=== PATIENT | female | born 1945 | race Caucasian/White ===

== ENCOUNTER 2019-05-11 13:31 | Outpatient (CLI) | payer MEDICARE, OTHER, SELFPAY ==
[2019-05-11] VITALS (9 sets, daily range): BP systolic 101–152; BP diastolic 55–82; PULSE 54–72; RESP 15–16; O2SAT 93–98
--- NOTE | 2019-05-11 13:33 | DI.RAD.S_ITS ---
PROCEDURE: PAIN L/S TRANSFORAMINAL INJECT INDICATIONS: SPINAL STENOSIS FINDINGS: Fluoroscopic spot filming was performed to verify placement of spinal needles at the L5-S1 needle placement. level(s), as labeled on the films. Appropriate location(s) of the needle tip(s) was confirmed by injection of iodinated contrast. There is trace anterolisthesis of L4 on L5. IMPRESSION: Needle placement as above. Dictated by: Anyi Dior M.D. on 05/11/2019 at 17:06 Approved by: Anyi Dior M.D. on 05/11/2019 at 17:07
[2019-05-11] MEDS: MIDAZOLAM 5 MG/5 ML VIAL IV (15:08)
[2019-05-11] MEDS: fentaNYL 100 MCG/2 ML INJ 50 MCG IV (15:08)
[2019-05-11] MEDS: BUPIVACAINE 0.25% (PF) VIAL 2 ML INJ (15:10)
[2019-05-11] MEDS: BETAMETHASONE 30 MG/5 ML MDV 6 MG INJ (15:10)
[2019-05-11] MEDS: IOPAMIDOL 15 ML VIAL 3 ML INJ (15:11)
[2019-05-11] MEDS: DEXAMETHASONE 10 MG/ML VIAL 20 MG INJ (15:11)
--- NOTE | 2019-05-11 15:26 | PC.NURSE ---
Post procedure note: Patient medicated per providers orders. VSS throughout on 2L/ATTORNEY. Tolerated procedure well. Able to sit up and transfer to w/c with standby assist. No complaints of pain 0/10. Tingling to right leg no numbness. Handoff report given to Jaswinder Tejada RN. Able to transfer to recliner from wheelchair independently.
--- NOTE | 2019-05-11 15:26 | PM.PROC.1 ---
Procedures Date/Time Date of procedure: 05/11/19 Time of procedure: 15:27 General Procedure description: PREOP DIAGNOSIS 1. FORMAINAL STENOSIS WITH LE SYMPTOMS, POST OP DIAGNOSIS 1. FORMAINAL STENOSIS WITH LE SYMPTOMS, PROCEDURES 1.FLUOROSCOPICALLY GUIDED CONTRAST CONTROLLED TRANSFORAMINAL EPIDURAL STEROID INJECTION - RIGHT L5/S1 TFESI PHYSICIAN: Grayson Pratt DO INDICATIONS: Pooja is referred by NELLIE Sanon for treatment of Foraminal Stenosis with right LE Symptoms FINDINGS Foraminal Nerve Root Compression secondary to disc disease and facet hypertrophy DESCRIPTION OF PROCEDURE Following review of allergy and review of potential side effects and complications, including, but not necessarily limited to, infection, allergic reaction, local tissue breakdown, stroke, temporary or permanent nerve injury, paralysis, and possible , the patient indicated that the patient understood and agreed to proceed. An informed consent document was signed by the patient, witnessed by a nurse, and placed in the patient's chart. Additionally, other treatment options including medications, modalities, and physical therapy were reviewed with the patient. After review of previous anaesthesic history and IV conscious sedation the patient was deemed safe to proceed with todays procedure with IV conscious sedation as ASA class II designation. Safety time-out was performed to confirm patient ID, procedure to be performed and site of procedure. IV sedation was accomplished with a combination of 2mg of Versed and 50mcg of Fentanyl was administered by the RN after DO order, titrated to patient comfort during the course of the procedure while the patient remained responsive to all verbal commands In the prone position following sterile prep and drape of the lumbar region, the right L5/S1 posterior neuroforamen was identified fluoroscopically. The skin was anesthetized via a 25-gauge 1.5-inch needle with 1% lidocaine solution. At this point, a 25-gauge 3.5-inch spinal needle was atraumatically introduced and advanced under fluoroscopic guidance through the posterior right L5/S1 neuroforamen to approximately the anterior aspect of the canal. Depth was confirmed on lateral view. Following negative aspiration, injection of approximately 1.5 cc of Isovue 200 under live fluoroscopy in the AP view confirmed excellent flow along the nerve root, into the epidural space without vascular or intrathecal uptake observed Radiological data, including multiple fluoroscopic views of the lumbosacral spine, reveal a spinal needle at the right L5/S1 posterior neuroforamen. Subsequent views show flow of contrast material flowing superiorly and inferiorly along the nerve root confirming epidural flow. Subsequently, a test dose of 1.5 cc of 1% lidocaine solution was administered and patient was observed for two minutes for signs or symptoms of complications, including abdominal pain, shortness of breath, bilateral upper or lower extremity weakness, nausea and vomiting, prior to steroid injection. At this point, a total of 3cc or 20mg of dexamethasone and 6mg betamethasone was injected without incident. The procedure tolerated the procedure well without signs or symptoms of complications prior to transfer to the recovery area continued monitoring without incident. The patient was then transferred to the recovery area where they were observed for an appropriate time after the injection. The patient reported a VAS score of 7 prior to the procedure and a post-procedure VAS of 0. Total Fluoroscopy Time: 20.9 seconds Total Conscious Sedation Time: 24min POST OP INSTRUCTIONS The patient was provided a Pain Log to continue to record their response to the target-specific procedure prior to follow-up visit with their referring physician. Additionally, specific post-injection care instructions and a contact number to our office were provided if concerns arise regarding possible complications associated with the procedure are suspected. Grayson Pratt, Complications: none
== END 2019-05-11 16:11 | disposition home or self-care (01) ==
LOC: RAD 13:33
PROVIDERS: PCP Physician Assistant; Visit Provider Physical Medicine & Rehabilitation
DX: M48.07 Spinal stenosis, lumbosacral region (principal); M51.17 Intervertebral disc disorders with radiculopathy, lumbosacral region
CPT/HCPCS: 64483; 99152; J0702; J2250; J3010

== ENCOUNTER → 2019-12-04 09:01 | Outpatient (CLI) | payer MEDICARE, OTHER, SELFPAY ==
[2019-12-06 11:12] LABS: COVID19 Sendout Not Detected (Not Detect)
== END ==
PROVIDERS: PCP Physician Assistant; Visit Provider Physician Assistant
DX: Z01.812 Encounter for preprocedural laboratory examination (principal)
CPT/HCPCS: 87635

== ENCOUNTER 2019-12-07 07:56 | Outpatient (CLI) | payer MEDICARE, OTHER, SELFPAY ==
[2019-12-07] VITALS (10 sets, daily range): BP systolic 106–155; BP diastolic 65–86; PULSE 51–68; RESP 14–17; TEMP 36.2; O2SAT 94–99
--- NOTE | 2019-12-07 07:57 | DI.RAD.S_ITS ---
PROCEDURE: PAIN L/S FACET INJ/BLK 1ST ROBBIN COMPARISON: None. INDICATIONS: SPONDYLOSIS FINDINGS: 6 intraoperative fluoroscopy images were obtained demonstrating needle placement at L4-L5 and L5-S1 facet joints. IMPRESSION: Fluoroscopy guidance for needle placement. Dictated by: Arvind Vera M.D. on 12/07/2019 at 10:11 Approved by: Arvind Vera M.D. on 12/07/2019 at 10:12
--- NOTE | 2019-12-07 08:54 | DI.RAD.S_ITS ---
PROCEDURE: XR CERVICAL SPINE 4V OR 5V INDICATIONS: progressive neck pain TECHNIQUE: 5 views of the cervical spine acquired. COMPARISON: None. FINDINGS: Bones: There is grade 1 retrolisthesis of C5 on C6. No fractures or dislocations to the C7 level. There is severe degenerative disc disease at C5-C6. Bilateral facet arthropathy is present severe at C4-C5 and C5-C6 on the right. Oblique images demonstrate foraminal stenosis at C5-C6, [id number] on the left and mild on the right. Soft tissues: No prevertebral soft tissue swelling. Multiple surgical clips in the lower neck, probably related to thyroidectomy. Recommend clinical correlation. IMPRESSION: 1. Severe degenerative disc disease and facet disease in cervical spine, most pronounced at C5-C6. 2. Bilateral foraminal stenosis at C5-C6, [id number] on the left and mild on the right. 3. Grade 1 retrolisthesis of C5 on C6. Dictated by: Arvind Vera M.D. on 12/07/2019 at 11:23 Approved by: Arvind Vera M.D. on 12/07/2019 at 11:29
[2019-12-07] MEDS: MIDAZOLAM 5 MG/5 ML VIAL IV (09:23)
[2019-12-07] MEDS: fentaNYL 100 MCG/2 ML INJ 50 MCG IV (09:23)
[2019-12-07] MEDS: BETAMETHASONE 30 MG/5 ML MDV 12 MG INJ (09:27)
[2019-12-07] MEDS: LIDOCAINE 1% 20 ML 10 ML INJ (09:27)
[2019-12-07] MEDS: IOPAMIDOL 15 ML VIAL 3 ML INJ (09:27)
--- NOTE | 2019-12-07 09:41 | P.PCN_ITS ---
Date/Time/Diagnoses Date of procedure: 12/07/19 Time of procedure: 09:41 Pre-procedure diagnosis: 1. FACET ARTHROPATHY 2. AXIAL LBP 3. MULTILEVEL DDD Post-procedure diagnosis: same Procedure Notes Procedure: 1. FLUOROSCOPICALLY GUIDED CONTRAST CONTROLLED FACET JOINT INJECTIONS BILATERAL L4/5, L5/S1 Indications: Pooja is referred by NELLIE Sanon for treatment of Axial LBP Physician: Grayson Pratt Total Fluoroscopy time (seconds): 11 Total sedation minutes: 24 Complications: none Procedure in detail & Post-procedure care: FINDINGS Multilevel Facet Arthropathy with Clinically significant axial LBP DESCRIPTION OF PROCEDURE Fluoroscopically guided, contrast-controlled bilateral L4/5, L5/S1 facet joint injections. Following review of allergy and review of potential side effects and complications, including, but not necessarily limited to, infection, allergic reaction, local tissue breakdown, stroke, temporary or permanent nerve injury, paralysis, and possible , the patient indicated that the patient understood and agreed to proceed. An informed consent document was signed by the patient, witnessed by a nurse, and placed in the patient's chart. Additionally, other treatment options including medications, modalities, and physical therapy were reviewed with the patient. After review of previous anaesthesic history and IV conscious sedation the patient was deemed safe to proceed with today?s procedure with IV conscious sedation as ASA class II designation. Safety time-out was performed to confirm patient ID, procedure to be performed and site of procedure. IV sedation was accomplished with a combination of 2mg of Versed and 50mcg of Fentanyl was administered by the RN after DO order, titrated to patient comfort during the course of the procedure while the patient remained responsive to all verbal commands In the prone position, following sterile prep and drape of the lumbar region, the posterior aspect of the L4/5, L5/S1 facet joints were identified fluoroscopically. The skin was anesthetized via a 25-gauge 1.5-inch needle with 1% lidocaine solution into the corresponding facet joints. At this point, a 22- gauge 3.5-inch spinal needle was atraumatically introduced and advanced under fluoroscopic guidance into the corresponding facet joints. Following negative aspiration, injections of approximately 0.2cc of Isovue 200 confirmed int erarticular placement without vascular uptake. The identical procedure was then performed at the L4/5, L5/S1 facet joints on the left. Radiological data, including multiple fluoroscopic views of the lumbosacral spine, reveal a spinal needle at the L4/5, L5/S1 facet joints bilaterally. Subsequent views show flow of contrast material both superiorly and inferiorly within the joint space without vascular or intrathecal uptake. At this point, a total of 0.5cc including a mixture of 0.25cc Marcaine and 0.25cc betamethasone was injected without complication into each of the corresponding facet joints. The patient tolerated the procedure well without signs or symptoms of complications prior to transfer to the recovery area continued monitoring without incident. The patient was then transferred to the recovery area where they were observed for an appropriate period of time after the injection. The patient reported a VAS score of 7 prior to the procedure and a post- procedure VAS of 0. POST OP INSTRUCTIONS The patient was provided a Pain Log to continue to record their response to the target-specific procedure prior to follow-up visit with their referring physician. Additionally, specific post-injection care instructions and a contact number to our office were provided if concerns arise regarding possible complications associated with the procedure are suspected.
--- NOTE | 2019-12-07 15:18 | PC.NURSE ---
Arrived injection, VSS, green pain log reviewed with post injection instructions.
--- NOTE | 2019-12-07 15:42 | PC.NURSE ---
Pt tolerated procedure well. Vitals stable upon transfer to post procedure room with report given to MATT Jose. IV Fentanyl and Versed given by Lauren Hamilton RN. All other meds administered by Dr. Pratt
== END 2019-12-07 10:11 | disposition home or self-care (01) ==
PROVIDERS: PCP Physician Assistant; Referring Provider Physical Medicine & Rehabilitation; Visit Provider Physical Medicine & Rehabilitation
DX: M47.816 Spondylosis without myelopathy or radiculopathy, lumbar region (principal); M47.817 Spondylosis without myelopathy or radiculopathy, lumbosacral region; M51.36 Other intervertebral disc degeneration, lumbar region; M51.37 Other intervertebral disc degeneration, lumbosacral region; M54.5 Low back pain; M54.2 Cervicalgia
CPT/HCPCS: 64493; 64494; 72050; 99152; J0702; J2250; J3010

== ENCOUNTER → 2020-01-22 08:36 | Outpatient (CLI) | payer MEDICARE, OTHER, SELFPAY ==
--- NOTE | 2020-01-22 08:39 | DI.MRI.S_ITS ---
PROCEDURE: MR CERVICAL SPINE WO CON INDICATIONS: Cervical radiculopathy, C5-6 slip TECHNIQUE: Noncontrast sagittal T1 spin echo and T2 fast spin echo, sagittal STIR, foraminal oblique sagittal T2 fast spin echo, and axial gradient echo or T2 fast spin echo through the cervical spine. COMPARISON: None. FINDINGS: Image quality: Excellent. Alignment and Curvature: There is overall straightening of the normal cervical lordosis. There is mild retrolisthesis seen at C5-C6. Bone Marrow: Marrow demonstrates normal overall signal. Spinal Cord: Visualized spinal cord has normal size and signal. No cerebellar tonsillar herniation. Paraspinous Soft Tissues: No paravertebral masses. Prevertebral soft tissues are normal in thickness. C2-C3: No significant abnormality is seen. C3-C4: The disc height is well-preserved. Loss of disc signal is seen at this level. Mild to moderate disc osteophyte complex is seen, with a mild central disc osteophyte protrusion, as on series 3, image 15. There is moderate right-sided and mild left-sided facet hypertrophy seen. There is moderate bilateral neural foraminal narrowing seen. Mild to moderate central canal narrowing is seen. Minimal ventral cord flattening is seen. C4-C5: Mild loss of disc height is seen. Loss of disc signal is seen. Moderate generalized disc osteophyte complex is seen. There is moderate to severe right-sided and mild to moderate left-sided facet hypertrophy seen. There is at least moderate right-sided and [id number] left-sided neural foraminal narrowing seen. No significant central canal narrowing is seen. C5-C6: Moderate to severe loss of disc height and disc signal can be seen. Moderate disc osteophyte complex is seen, which is eccentric to the right. Uncovertebral joint hypertrophy is seen at this level. Mild to moderate facet hypertrophy is seen. Moderate to severe bilateral neural foraminal narrowing is seen, left worse than right. Moderate central canal narrowing is seen. There is associated mass effect upon the ventral spinal cord. C6-C7: Ryry-lh-[id number] loss of disc height and disc signal can be seen. Mild to moderate disc osteophyte complex is seen. Uncovertebral joint hypertrophy is seen at this level. Mild to moderate facet hypertrophy is seen. There is moderate to severe bilateral neural foraminal narrowing seen, right worse than left. Mild central canal narrowing is seen. C7-T1: The disc height is well-preserved. Loss of disc signal is seen at this level. Mild to moderate disc osteophyte complex is seen. Mild facet joint hypertrophy is seen. Mild to moderate bilateral neural foraminal narrowing is seen. The central canal is widely patent. IMPRESSION: Multiple levels of cervical spine degenerative change are seen, which are most prominent at C5-C6. Dictated by: Luigi Roy M.D. on 01/24/2020 at 8:51 Approved by: Luigi Roy M.D. on 01/24/2020 at 8:56
== END ==
PROVIDERS: PCP Physician Assistant; Referring Provider Physical Medicine & Rehabilitation; Visit Provider Physical Medicine & Rehabilitation
DX: M47.22 Other spondylosis with radiculopathy, cervical region (principal)
CPT/HCPCS: 72141